=== PATIENT | female | born 1930 | race Caucasian/White ===

== ENCOUNTER → 2018-06-09 | Outpatient (CLI) | payer MEDICARE ==
--- NOTE | 2018-06-09 10:19 | Diagnostic Imaging Report ---
INDICATION: Abdominal pain with nausea and vomiting. Time of exam: 10:03 AM No free air is identified. Bowel gas pattern appears nonobstructed. No pathologic calcifications are seen. Postsurgical changes in the upper abdomen are noted. IMPRESSION: No acute abnormality is detected. Dictated by: Dictated on workstation # [id number]
== END ==
LOC: RAD FS 09:53
PROVIDERS: ATTEND Family Medicine
DX: R23.1 Pallor (principal); R10.9 Unspecified abdominal pain; R11.2 Nausea with vomiting, unspecified; Z98.890 Other specified postprocedural states
CPT/HCPCS: 74018

== ENCOUNTER → 2018-06-17 | Outpatient (CLI) | payer MEDICARE ==
--- NOTE | 2018-06-17 10:31 | Diagnostic Imaging Report ---
PROCEDURE: CT abdomen and pelvis without contrast. TECHNIQUE: Multiple contiguous axial images were obtained through the abdomen and pelvis without the use of intravenous contrast. Auto Exposure Controls were utilized during the CT exam to meet ALARA standards for radiation dose reduction. INDICATION: Intermittent diarrhea, nausea and vomiting for four months as well as unexplained weight loss. COMPARISON: No prior studies are available for comparison. FINDINGS: The lung bases are clear. No discrete liver mass is identified. The gallbladder appears to be surgically absent. No biliary ductal dilatation is seen. The pancreas and spleen are unremarkable. No adrenal masses are seen. Right kidney does contain an approximately 5.2 cm low-density mass in the lower pole suggestive of a cyst. No renal calculi or hydronephrosis is identified. Aorta is calcified but nonaneurysmal. No central retroperitoneal or mesenteric lymphadenopathy is identified. The bowel loops are normal in caliber. There is significant diverticulosis of the sigmoid colon but no evidence of acute diverticulitis. Small bowel loops are normal in caliber. There is no ascites. No definite pelvic lymphadenopathy is seen. The bladder is unremarkable. The bony structures are nonacute. IMPRESSION: 1. Status post cholecystectomy. 2. 5 cm right renal cyst. 3. Uncomplicated sigmoid diverticulosis. 4. Otherwise unremarkable noncontrast CT of the abdomen and pelvis. Dictated by: Dictated on workstation # [id number]
== END ==
LOC: RAD FS 09:47
PROVIDERS: ATTEND Family Medicine
DX: N28.1 Cyst of kidney, acquired (principal); K57.30 Diverticulosis of large intestine without perforation or abscess without bleeding; R19.7 Diarrhea, unspecified; R63.4 Abnormal weight loss; Z90.49 Acquired absence of other specified parts of digestive tract
CPT/HCPCS: 74176